=== PATIENT | female | born 1940 | race Caucasian/White ===

== ENCOUNTER 2017-09-03 17:46 | Inpatient (IN) | payer MEDICARE ==
[~2017-09-03] VITALS: Ht 162.6 cm; Wt 68.6 kg
[~2017-09-03 17:46] MED LIST: AMLO5TAB22 PO; ASPI81TA82 PO; ATEN-104 PO; FISH120014 PO; GLUC750T22 PO; LEVO88TA2 PO; TELM1TAB56 PO; VITA20003 PO
[2017-09-03 17:59] VITALS: BP 162/68; PULSE 56; RESP 16; TEMP 98.5; O2SAT 96
--- NOTE | 2017-09-03 18:51 | PD ---
HPI Chief Complaint: Fall Time Seen by Provider: 18:50 Travel History International Travel<30 days: No Contact w/Intl Traveler<30days: No Traveled to known affect area: No History of Present Illness HPI 77-year-old female presents the emergency Department with right hip pain status post tripping and falling over her dog. Patient has pain in the anterior aspect of the pelvis and hip. Denies hitting her head or loss of consciousness. Patient denies numbness, tingling or weakness of the right leg. Pain is currently 8 out of 10. She has no known drug allergies. PFSH Past Medical History Hx Anticoagulant Therapy: Yes (81 MG ASA) Cardiovascular Problems: Yes (HTN) Chemotherapy: No Cerebrovascular Accident: No Diabetes: No Hypertension: Yes Respiratory: No Immunizations Current: Yes (SHINGLES) Thyroid Disease: Yes Past Surgical History Abdominal Surgery: Yes (EXP LAP) Hysterectomy: Yes Social History Alcohol Use: Yes Tobacco Use: No Substance Use: No Allergies-Medications (Allergen,Severity, Reaction): Coded Allergies: No Known Allergies (Unverified Adverse Reaction, Unknown, 09/03/17) Reported Meds & Prescriptions Reported Meds & Active Scripts Active Hydrocodone-Acetaminophen 5-325 mg Tab 1 Tab PO Q6H PRN Reported Glucosamine-Chondroitin 500-400 Mg Tab 1 Tab PO BID Calcium 600 with Vitamin D (Calcium Carbonate-Cholecalciferol) 600-400 mg-Unit Tab 1 Tab PO DAILY Vitamin D-1000 (Cholecalciferol) 1,000 Unit Tab 2,000 Units PO DAILY Aspirin EC (Aspirin) 81 Mg Tabdr 81 Mg PO DAILY Fish Oil + D3 (Fish Oil-Cholecalciferol) 1,200-1,000 Mg-Unit Cap 1 Cap PO DAILY Micardis (Telmisartan) 80 Mg Tab 80 Mg PO DAILY Levothyroxine (Levothyroxine Sodium) 100 Mcg Tab 100 Mcg PO DAILY Amlodipine (Amlodipine Besylate) 5 Mg Tab 5 Mg PO DAILY Atenolol 100 Mg Tab 100 Mg PO DAILY Review of Systems Except as stated in HPI: all other systems reviewed are Neg General / Constitutional: No: Fever Eyes: No: Visual changes HENT: No: Headaches Cardiovascular: No: Chest Pain or Discomfort Respiratory: No: Shortness of Breath Gastrointestinal: No: Abdominal Pain Genitourinary: No: Dysuria Musculoskeletal: Positive: Arthralgias, Limited ROM, Pain Skin: No Rash Neurologic: No: Weakness Psychiatric: No: Depression Endocrine: No: Polydipsia Hematologic/Lymphatic: No: Easy Bruising Physical Exam Narrative GENERAL: Patient appears in mild to moderate distress. SKIN: Warm and dry. Normal color. Normal turgor. There is a contusion to the right anterior knee without significant swelling. HEAD: Atraumatic. Normocephalic. Nontender. EYES: Pupils equal and round. No scleral icterus. No injection or drainage. ENT: No nasal bleeding or discharge. Mucous membranes pink and moist. Pharynx is clear. Airway is patent NECK: Trachea midline. Supple nontender. CARDIOVASCULAR: Regular rate and rhythm. RESPIRATORY: No accessory muscle use. Clear to auscultation. Breath sounds equal bilaterally. GASTROINTESTINAL: Abdomen soft, non-tender, nondistended. Hepatic and splenic margins not palpable. MUSCULOSKELETAL: Extremities without clubbing, cyanosis, or edema. No obvious deformities. Patient has pain with palpation along the anterior groin and pubis. Pelvic rock does not show instability or crepitus. Patient has pain with hip flexion and internal rotation. No shortening is noted of the right leg. Patient is able to dorsiflex and plantar flex against resistance without increased pain. NEUROLOGICAL: Awake and alert. No obvious cranial nerve deficits. Motor grossly within normal limits. Five out of 5 muscle strength in the arms and legs. Normal speech. PSYCHIATRIC: Appropriate mood and affect; insight and judgment normal. Data Data Last Documented VS Vital Signs Date Time Temp Pulse Resp B/P (MAP) Pulse Ox O2 Delivery O2 Flow Rate FiO2 09/03/17 20:45 96 Room Air 09/03/17 17:59 98.5 56 16 162/68 (99) Orders Orders Hip, Uni(Ap&Lat) W Ap Pelvis (09/03/17 18:54) Iv Access Insert/Monitor (09/03/17 18:58) Oximetry (09/03/17 18:58) Ecg Monitoring (09/03/17 18:58) Morphine Inj (Morphine Inj) (09/03/17 19:00) Sodium Chloride 0.9% Flush (Ns Flush) (09/03/17 19:00) Ed Discharge Order (09/03/17 20:33) [facility] Medical Decision Making Medical Screen Exam Complete: Yes Emergency Medical Condition: Yes Differential Diagnosis Slipped and fall. Hip fracture. Hip sprain. Groin sprain. Pelvic fracture. Narrative Course IV is started, patient is given 4 mg morphine IV as well as 4 mg Zofran IV. X-ray of the right hip and pelvis are ordered. X-ray of the right hip shows no obvious hip fracture but patient does have a nondisplaced right superior ramus fracture. X-ray was reviewed with Dr. Alejo. Patient attempted to ambulate with walker that she had from home without ability to take a step. Patient discussed with Dr. Alejo who recommended admission for pain control and PT eval. Dr. Alejo is to call the hospitalist for admission. Care the patient turned over at 2100 hrs. Diagnosis Primary Impression: Pubic ramus fracture Qualified Codes: S32.591A - Other specified fracture of right pubis, initial encounter for closed fracture Admitting Information Admitting Physician Requests: Observation Disposition: 01 DISCHARGE HOME Condition: Stable Juarez Ramsay Sep 03, 2017 18:51
[2017-09-03] MEDS ORDERED: SODIUM CHLORIDE 0.9% FLUSH 10 ML FLUSH IVF PRN (19:00)
[2017-09-03] MEDS ORDERED: MORPHINE SULFATE 4 MG/ML INJ IV PUSH ONE (19:00)
[2017-09-03] MEDS ORDERED: LEVO100T5 PO (19:01)
[2017-09-03] MEDS ORDERED: CALC1TAB87 PO (19:01)
[2017-09-03] MEDS ORDERED: ASPI81TA23 PO (19:01)
[2017-09-03] MEDS ORDERED: TELM1TAB56 PO (19:01)
[2017-09-03] MEDS ORDERED: GLUC500T4 PO (19:01)
[2017-09-03] MEDS ORDERED: VITA1000 PO (19:01)
[2017-09-03] MEDS ORDERED: FISHCAP4 PO (19:01)
[2017-09-03] MEDS ORDERED: AMLO5TAB2 PO (19:01)
[2017-09-03] MEDS ORDERED: ATEN100T PO (19:01)
[2017-09-03] MEDS ORDERED: HYDR-3516 PO ×2 (20:38→20:40)
--- NOTE | 2017-09-03 20:38 | RADRPT ---
EXAM DATE/TIME: 09/03/2017 20:06 [facility] COMPARISON: No previous studies available for comparison. INDICATIONS : Right hip pain. Patient fell tonight. MEDICAL HISTORY : None. SURGICAL HISTORY : None. ENCOUNTER: Initial ACUITY: 1 day PAIN SCORE: 8/10 LOCATION: Right hip. FINDINGS: 2 views of the right hip an AP view of the pelvis. The bony acetabulum is intact bilaterally. The p rimary and secondary trabecular pattern of the femoral neck is intact bilaterally. There is a nondis placed fracture of the right superior pubic bone between the ramus and symphysis. The arcuate lines the sacrum are symmetric when taking into account rotation of the patient. CONCLUSION: 1. Nondisplaced fracture of the superior right pubic bone. 2. No evidence of proximal femoral fracture. David Nieves MD on September 03, 2017 at 20:34 Board Certified Radiologist. This report was verified electronically.
[2017-09-03 20:45] VITALS: O2SAT 96
[2017-09-03] MEDS ORDERED: MAGNESIUM HYDROXIDE SUSP 30 ML CUP PO PRN (21:30)
[2017-09-03] MEDS ORDERED: ONDANSETRON HCL 4 MG/2 ML VIAL IVP PRN (21:30)
[2017-09-03] MEDS ORDERED: ACETAMINOPHEN 325 MG TAB PO PRN (21:30)
[2017-09-03] MEDS ORDERED: SODIUM CHLORIDE 0.9% FLUSH 10 ML FLUSH IV FLUSH PRN (21:30)
[2017-09-03] MEDS ORDERED: SENNOSIDES 8.6 MG TAB PO PRN (21:30)
[2017-09-03] MEDS ORDERED: BISACODYL 10 MG SUPP RECTAL PRN (21:30)
[2017-09-03] MEDS ORDERED: NALOXONE HCL 0.4 MG/ML AMP IV PUSH PRN (21:30)
[2017-09-03] MEDS ORDERED: LACTULOSE SYRUP 20 GM/30 ML CUP PO PRN (21:30)
[2017-09-03] MEDS: SODIUM CHLOR 0.9% 1000 ML INJ 1,000 ML IV SCH (23:07)
[2017-09-04] VITALS: BP 148/65; PULSE 61; RESP 18; TEMP 98.1; O2SAT 96
[2017-09-04] MEDS ORDERED: LOSARTAN 50 MG TAB PO ONE (00:45)
[2017-09-04] MEDS: MORPHINE SULFATE 2 MG/ML INJ IV PUSH PRN ×3 (01:25→10:55)
[2017-09-04 04:00] VITALS: BP 129/63; PULSE 66; RESP 20; TEMP 98.4; O2SAT 93
[2017-09-04] MEDS: SODIUM CHLOR 0.9% 1000 ML INJ 1,000 ML IV SCH (05:56)
[2017-09-04 05:58] LABS: AUTOMATED NEUTROPHIL # 6.3 TH/MM3 (1.8-7.7); BASOPHIL % 0.3 % (0.0-2.0); EOSINOPHIL # 0.1 TH/MM3 (0-0.4); EOSINOPHIL % 0.9 % (0.0-4.0); HEMATOCRIT 35.3 % (35.0-46.0); HEMO FLAGS DIFF FINAL; LYMPH % 15.9 % (9.0-44.0); LYMPHOCYTE # 1.4 TH/MM3 (1.0-4.8); MEAN CELL VOLUME 93.4 FL (80.0-100.0); MEAN CORPUSCULAR HEMOGLOBIN 30.7 PG (27.0-34.0); MEAN CORPUSCULAR HGB CONC 32.9 % (32.0-36.0); MONO % 7.8 % (0.0-8.0); NEUT % 75.1 % (16.0-70.0); PLATELET COUNT 236 TH/MM3 (150-450); RED BLOOD COUNT 3.78 MIL/MM3 (4.00-5.30); RED CELL DISTRIBUTION WIDTH 13.3 % (11.6-17.2); WHITE BLOOD COUNT 8.5 TH/MM3 (4.0-11.0)
[2017-09-04] MEDS ORDERED: LEVOTHYROXINE SODIUM 100 MCG TAB PO SCH (06:00)
[2017-09-04 06:15] LABS: POTASSIUM 3.8 MEQ/L (3.5-5.1)
[2017-09-04 08:00] VITALS: BP 140/63; PULSE 64; RESP 16; TEMP 99.1; O2SAT 97
[2017-09-04] MEDS ORDERED: SODIUM CHLORIDE 0.9% FLUSH 10 ML FLUSH IV FLUSH SCH (09:00)
[2017-09-04] MEDS ORDERED: amLODIPine BESYLATE 5 MG TAB PO SCH (09:00)
[2017-09-04] MEDS ORDERED: ATENOLOL 50 MG TAB PO SCH (09:00)
[2017-09-04] MEDS ORDERED: DOCUSATE SODIUM 50 MG/SENNA 8.6 MG TAB PO SCH (09:00)
[2017-09-04] MEDS ORDERED: LOSARTAN 50 MG TAB PO SCH (09:00)
[2017-09-04] MEDS ORDERED: WALKER WHEELS/F1 MIS (10:12)
[2017-09-04] MEDS ORDERED: COMMODE BEDSIDE1 MI1 (10:12)
--- NOTE | 2017-09-04 10:14 | HHI.DCPOC ---
Discharge Care Plan Diagnosis: (1) Pubic ramus fracture Goals to Promote Your Health * To prevent worsening of your condition and complications * To maintain your health at the optimal level Directions to Meet Your Goals Take your medications as prescribed Follow your dietary instruction Follow activity as directed Keep your appointments as scheduled Take your immunizations and boosters as scheduled If your symptoms worsen call your PCP, if no PCP go to Urgent Care Center or Emergency Room Smoking is Dangerous to Your Health. Avoid second hand smoke Call the 24-hour hour crisis hotline for domestic abuse at Danny Vega Sep 04, 2017 10:14
[2017-09-04] MEDS ORDERED: ACETAMINOPHEN/HYDROcodone 325 MG/5 MG TAB PO PRN (11:30)
--- NOTE | 2017-09-04 11:52 | RADRPT ---
EXAM DATE/TIME: 09/04/2017 11:31 [facility] COMPARISON: No previous studies available for comparison. INDICATIONS : Right shoulder pain post fall. MEDICAL HISTORY : None. SURGICAL HISTORY : None. ENCOUNTER: Initial ACUITY: 2 days PAIN SCORE: 10/10 LOCATION: Right lateral shoulder FINDINGS: Multiple view examination of the right shoulder demonstrates no evidence of fracture or dislocation. The glenohumeral and acromioclavicular joints are maintained. There is normal range of motion betwe en internal and external rotation. Bony mineralization is reduced. CONCLUSION: 1. Osteopenia. 2. No acute abnormality. David Hill Jr., MD on September 04, 2017 at 11:48 Board Certified Radiologist. This report was verified electronically.
[2017-09-04 12:00] VITALS: BP 138/64; PULSE 66; RESP 16; TEMP 99
[2017-09-04] MEDS ORDERED: ZOFR4TAB3 SL (13:38)
[2017-09-04] MEDS ORDERED: NORC5TAB PO (13:38)
--- NOTE | 2017-09-04 13:43 | HHI.HP ---
HPI Service [facility] Primary Care Physician Non-Staff Admission Diagnosis intractable pain; pelvis fx/superior ramus Diagnoses: (1) Fall at home Diagnosis: Principal (2) Pubic ramus fracture Diagnosis: Principal Chief Complaint: Follow home with right hip pain Travel History International Travel<30 Days: No Contact w/Intl Traveler <30 Da: No Traveled to Known Affected Are: No History of Present Illness 77-year-old female with known history of hypertension, hypothyroidism , Red's esophagus who presented to hospital because of pain in her right groin region. Patient is very active and walks on a regular basis. She was watering her plants that she slipped on some spilled water and fell onto her right side. She developed pain in her right groin area and had difficulty ambulating so she came to the emergency department for evaluation. Patient had x-ray studies performed which did show a nondisplaced pubic rami fracture, patient was unable to ambulate in the emergency department so it is recommended that patient be admitted for further evaluation management. This morning the patient is not complaining of right shoulder pain since her fall. She is having difficulty with elevating her right arm. X-rays were performed and they were unremarkable for any fracture. Patient denies any other symptoms. She denied any head injury or any loss of consciousness. Denies any chest pain, shortness of breath, dizziness, lightheadedness, nausea. Review of Systems Musculoskeletal: COMPLAINS OF: Joint pain Except as stated in HPI: all other systems reviewed are Neg Past Family Social History Past Medical History Hypertension Hypothyroidism Red's esophagus Hyperlipidemia Past Surgical History Total abdominal hysterectomy Appendectomy Endoscopy Tonsillectomy Surgery for Torticollis Reported Medications Reported Meds & Active Scripts Active Carter (Hydrocodone-Acetaminophen) 5 Mg-325 Mg Tab 1 Tab PO Q6H PRN Zofran Odt (Ondansetron Odt) 4 Mg Tab 4 Mg SL Q6HR PRN Commode Bedside (Device) 1 Mis Mis Ea .ROUTE DIRECTED Walker with Front Wheels (Device) 1 Mis Mis Ea .ROUTE DIRECTED Reported Glucosamine-Chondroitin 500-400 Mg Tab 1 Tab PO BID Calcium 600 with Vitamin D (Calcium Carbonate-Cholecalciferol) 600-400 mg-Unit Tab 1 Tab PO DAILY Vitamin D-1000 (Cholecalciferol) 1,000 Unit Tab 2,000 Units PO DAILY Aspirin EC (Aspirin) 81 Mg Tabdr 81 Mg PO DAILY Fish Oil + D3 (Fish Oil-Cholecalciferol) 1,200-1,000 Mg-Unit Cap 1 Cap PO DAILY Micardis (Telmisartan) 80 Mg Tab 80 Mg PO DAILY Levothyroxine (Levothyroxine Sodium) 100 Mcg Tab 100 Mcg PO DAILY Amlodipine (Amlodipine Besylate) 5 Mg Tab 5 Mg PO DAILY Atenolol 100 Mg Tab 100 Mg PO DAILY Allergies: Coded Allergies: No Known Allergies (Unverified Allergy, Unknown, 09/03/17) Family History Reviewed is significant for mother having heart disease and diabetes Social History Patient quit smoking in 1991, prior to that she smoked up to 2 pack a cigarettes a day since she was 16 years old. He does continue to drink alcohol proximal pain 5 drinks a week. Denies any illicit drugs Physical Exam Vital Signs Vital Signs Date Time Temp Pulse Resp B/P (MAP) Pulse Ox O2 Delivery O2 Flow Rate FiO2 09/04/17 08:00 99.1 64 16 140/63 (88) 97 09/04/17 04:00 98.4 66 20 129/63 (85) 93 09/04/17 00:00 98.1 61 18 148/65 (92) 96 09/03/17 20:45 96 Room Air 09/03/17 17:59 98.5 56 16 162/68 (99) 96 Physical Exam GENERAL: Well-developed, well-nourished, in no acute distress. alert and orientated HEENT: Head is normocephalic without any lesions or masses noted. Facial features are symmetric. Eyes: Pupils equal round reactive to light. Extraocular muscles are intact. Conjunctivae were clear. Oropharyngeal: Pharynx without any erythema edema. Tongue is midline without deviation. Buccal mucosa is moist without any masses or lesions NECK: Supple without any masses. Trachea midline no deviation. No JVD, no bruits are appreciated CARDIAC: Regular rhythm, regular rate. S1/S2 are heard. 2/6 ejection murmur, gallops or rubs. LUNGS: Clear to auscultation bilaterally. No wheeze, rhonchi or rales. No use of accessory muscles on inspiration or expiration. ABDOMEN: Soft, nontender. Nondistended. Bowel sounds heard in all 4 quadrants. No organomegaly or masses. Negative rebound, negative guarding EXTREMITIES: No edema, pulses are equal bilaterally. No cyanosis or clubbing NEUROLOGY: Mood and affect appear appropriate. Cranial nerves II through XII grossly intact. Muscle strength 5/5 in upper and lower extremities bilaterally. Deep tendon reflexes are 2+ in upper and lower extremities bilaterally. Laboratory Laboratory Tests Test 09/04/17 05:05 White Blood Count 8.5 Red Blood Count 3.78 Hemoglobin 11.6 Hematocrit 35.3 Mean Corpuscular Volume 93.4 Mean Corpuscular Hemoglobin 30.7 Mean Corpuscular Hemoglobin Concent 32.9 Red Cell Distribution Width 13.3 Platelet Count 236 Mean Platelet Volume 10.7 Neutrophils (%) (Auto) 75.1 Lymphocytes (%) (Auto) 15.9 Monocytes (%) (Auto) 7.8 Eosinophils (%) (Auto) 0.9 Basophils (%) (Auto) 0.3 Neutrophils # (Auto) 6.3 Lymphocytes # (Auto) 1.4 Monocytes # (Auto) 0.7 Eosinophils # (Auto) 0.1 Basophils # (Auto) 0.0 CBC Comment DIFF FINAL Differential Comment Blood Urea Nitrogen 18 Creatinine 0.86 Random Glucose 102 Calcium Level 8.8 Sodium Level 140 Potassium Level 3.8 Chloride Level 106 Carbon Dioxide Level 26.0 Anion Gap 8 Estimat Glomerular Filtration Rate 64 Result Diagram: 09/04/17 0505 09/04/17 0505 Imaging Last Impressions Shoulder X-Ray 09/04/17 0000 Signed Impressions: Service Date/Time: Monday, September 04, 2017 11:31 - CONCLUSION: 1. Osteopenia. 2. No acute abnormality. David Hill Jr., MD Hip and Pelvis X-Ray 09/03/17 1854 Signed Impressions: Service Date/Time: Sunday, September 03, 2017 20:06 - CONCLUSION: 1. Nondisplaced fracture of the superior right pubic bone. 2. No evidence of proximal femoral fracture. MD Estelle Us VTE Risk Assessment Caprini VTE Risk Assessment: Mod/High Risk (score >= 2) Caprini Risk Assessment Model Point Value = 1 Point Value = 2 Point Value = 3 Point Value = 5 Age 41-60 Minor surgery BMI > 25 kg/m2 Swollen legs Varicose veins or History of unexplained or recurrent spontaneous Oral contraceptives or hormone replacement Sepsis (< 1 month) Serious lung disease, including pneumonia (< 1 month) Abnormal pulmonary function Acute myocardial infarction Congestive heart failure (< 1 month) History of inflammatory bowel disease Medical patient at bed rest Age 61-74 Arthroscopic surgery Major open surgery (> 45 min) Laparoscopic surgery (> 45 min) Malignancy Confined to bed (> 72 hours) Immobilizing plaster cast Central venous access Age >= 75 History of VTE Family history of VTE Factor V Leiden Prothrombin [id number] Lupus anticoagulant Anticardiolipin antibodies Elevated serum homocysteine Heparin-induced thrombocytopenia Other congenital or acquired thrombophilia Stroke (< 1 month) Elective arthroplasty Hip, pelvis, or leg fracture Acute spinal cord injury (< 1 month) Prophylaxis Regimen Total Risk Factor Score Risk Level Prophylaxis Regimen 0-1 Low Early ambulation 2 Moderate Order ONE of the following: *Sequential Compression Device (SCD) *Heparin 5000 units SQ BID 3-4 Higher Order ONE of the following medications: *Heparin 5000 units SQ TID *Enoxaparin/Lovenox 40 mg SQ daily (WT < 150 kg, CrCl > 30 mL/min) *Enoxaparin/Lovenox 30 mg SQ daily (WT < 150 kg, CrCl > 10-29 mL/min) *Enoxaparin/Lovenox 30 mg SQ BID (WT < 150 kg, CrCl > 30 mL/min) AND/OR *Sequential Compression Device (SCD) 5 or more Highest Order ONE of the following medications: *Heparin 5000 units SQ TID (Preferred with Epidurals) *Enoxaparin/Lovenox 40 mg SQ daily (WT < 150 kg, CrCl > 30 mL/min) *Enoxaparin/Lovenox 30 mg SQ daily (WT < 150 kg, CrCl > 10-29 mL/min) *Enoxaparin/Lovenox 30 mg SQ BID (WT < 150 kg, CrCl > 30 mL/min) AND *Sequential Compression Device (SCD) Assessment and Plan Assessment and Plan Right nondisplaced pubic rami fractures secondary to fall at home ER physician recommended admission secondary to difficulty in ambulation Pain controlled with medication. Family requesting oral form of medication Physical therapy evaluated patient and recommended home health care with walker, bedside commode Case management consulted for home health care. Hypertension, hypothyroidism Home medications were continued DVT prevention Sequential compression devices Discharge disposition Discharge home with home health care Activity: Ad modesto. Diet: Healthy heart diet Medications per medication reconciliation Follow-up with primary medical doctor in one week Problem Qualifiers (1) Pubic ramus fracture: Qualified Codes: S32.591A - Other specified fracture of right pubis, initial encounter for closed fracture Danny Vega Sep 04, 2017 13:43
--- NOTE | 2017-09-04 13:52 | HHI.FF ---
Face to Face Verification Diagnosis: (1) Pubic ramus fracture (2) Fall at home Physical Therapy Order: Evaluate and Treat, Improve ambulation, Strength and gait training Home Health Nursing Order: Nursing assessment with vital signs I have seen patient Yulisa George on 09/04/17. My clinical findings support the need for the requested home health care services because: Deconditioned w/ increased weakness I certify that my clinical findings support that this patient is homebound because: Unsteady gait/balance Danny Vega Sep 04, 2017 13:52
== END 2017-09-04 19:36 | disposition home health service (06) | DRG 536 ==
LOC: PHEFT 17:46 → PHEDA 21:26 → PH3A 22:16
PROVIDERS: ADMIT Hospitalist; ATTEND Hospitalist
DX: S32.511A Fracture of superior rim of right pubis, initial encounter for closed fracture (principal); I10 Essential (primary) hypertension; E03.9 Hypothyroidism, unspecified; E78.5 Hyperlipidemia, unspecified; W01.0XXA Fall on same level from slipping, tripping and stumbling without subsequent striking against object, initial encounter; Y92.009 Unspecified place in unspecified non-institutional (private) residence as the place of occurrence of the external cause; Z87.891 Personal history of nicotine dependence
CPT/HCPCS: 73030; 73502; 80048; 85025; J2270; J2405; J7030